=== PATIENT | male | born 1960 | race Caucasian/White ===

== ENCOUNTER → 2020-11-11 14:11 | Outpatient (CLI) | payer OTHER, SELFPAY ==
[2020-11-11 15:11] LABS: Basophils # 0.1 K/mm3 (0-0.2); Basophils % 0.7 % (0.1-2.0); Eosinophils # 0.5 K/mm3 (0.0-0.4); Eosinophils % 4.3 % (0.1-12.0); Hemoglobin 14.9 g/dL (14.1-18.0); Lymphocytes # 2.6 K/mm3 (0.7-4.5); Lymphocytes % 23.6 % (10-50); Mean Corpuscular Hemoglobin 30.1 pg (27.0-31.2); Mean Corpuscular Volume 88.7 fl (80-94); Mean Platelet Volume 8.7 fl (7.4-10.4); Monocytes # 0.7 K/mm3 (0.1-1.0); Monocytes % 6.2 % (1.7-9.3); Neutrophils % 65.2 % (37.0-80.0); Platelet Count 246 K/mm3 (142-424); Red Blood Count 4.96 M/mm3 (4.60-6.20); Red Cell Distribution Width 14.6 % (11.5-17.5); White Blood Count 10.8 K/mm3 (4.8-10.8)
[2020-11-11 15:16] LABS: Alanine Aminotransferase 27 U/L (12-78); Albumin Level 4.4 g/dl (3.5-5.0); Albumin/Globulin Ratio 1.6 (1.1-1.8); Alkaline Phosphatase 94 U/L (38-126); Anion Gap 9.9 mEq/L (5-15); Aspartate Amino Transferase 27 U/L (17-59); Bilirubin,Total 0.4 mg/dl (0.2-1.3); Blood Urea Nitrogen 17 mg/dl (9-20); Calcium 10.5 mg/dl (8.4-10.2); Carbon Dioxide 31 mmol/L (22.0-30.0); Chloride 105 mmol/L (98-107); Chol/HDL Ratio 6.6 (1-3.5); Cholesterol 232 mg/dl (140-200); Estimated Glomerular Filt Rate 69 ml/min (>60); GFR (African American) 83 ML/MIN (>60); Globulin 2.8 g/dL (1.3-3.2); Glucose 88 mg/dl (74-100); HDL Cholesterol 35 mg/dl (40-60); Potassium 4.9 mmoL/L (3.5-5.1); Sodium 141 mmol/L (136-145); Total Protein,Serum 7.2 g/dl (6.3-8.2); Triglycerides 220 mg/dl (30-150); VLDL Cholesterol 44 mg/dL (0-40)
[2020-11-11 15:27] LABS: Direct LDL Cholesterol 174.31 mg/dL (100-129)
== END ==
PROVIDERS: Visit Provider Family Medicine
DX: I10 Essential (primary) hypertension (principal); R60.0 Localized edema; E66.09 Other obesity due to excess calories; Z68.36 Body mass index [BMI] 36.0-36.9, adult; Z12.5 Encounter for screening for malignant neoplasm of prostate
CPT/HCPCS: 80053; 80061; 84443; 85025; G0103

== ENCOUNTER → 2021-01-07 13:48 | Outpatient (CLI) | payer OTHER, SELFPAY ==
[2021-01-07 14:13] LABS: Chloride 106 mmol/L (98-107)
[2021-01-07 14:14] LABS: Potassium 3.5 mmoL/L (3.5-5.1); Sodium 143 mmol/L (136-145)
[2021-01-07 14:16] LABS: Alanine Aminotransferase 27 U/L (12-78); Albumin Level 4.4 g/dl (3.5-5.0); Albumin/Globulin Ratio 1.6 (1.1-1.8); Alkaline Phosphatase 99 U/L (38-126); Anion Gap 11.5 mEq/L (5-15); Aspartate Amino Transferase 34 U/L (17-59); Bilirubin,Total 0.6 mg/dl (0.2-1.3); Blood Urea Nitrogen 18 mg/dl (9-20); Carbon Dioxide 29 mmol/L (22.0-30.0); Estimated Glomerular Filt Rate 62 ml/min (>60); GFR (African American) 75 ML/MIN (>60); Globulin 2.7 g/dL (1.3-3.2); Total Protein,Serum 7.1 g/dl (6.3-8.2)
[2021-01-07 14:17] LABS: Calcium 9.1 mg/dl (8.4-10.2); Chol/HDL Ratio 5.1 (1-3.5); Cholesterol 182 mg/dl (140-200); Glucose 101 mg/dl (74-100); HDL Cholesterol 36 mg/dl (40-60); Triglycerides 103 mg/dl (30-150); VLDL Cholesterol 21 mg/dL (0-40)
[2021-01-07 14:34] LABS: Direct LDL Cholesterol 129.76 mg/dL (100-129)
[2021-01-07 14:47] LABS: Thyroid Stimulating Hormone 1.97 uIU/mL (0.465-4.68)
[2021-01-07 14:52] LABS: Basophils # 0.1 K/mm3 (0-0.2); Basophils % 0.7 % (0.1-2.0); Eosinophils # 0.5 K/mm3 (0.0-0.4); Eosinophils % 4.5 % (0.1-12.0); Hematocrit 42.6 % (42.0-52.0); Hemoglobin 13.8 g/dL (14.1-18.0); Lymphocytes # 2.5 K/mm3 (0.7-4.5); Lymphocytes % 24.1 % (10-50); Mean Corpuscular HGB Conc 32.4 g/dL (31.8-35.4); Mean Corpuscular Hemoglobin 28.9 pg (27.0-31.2); Mean Platelet Volume 8.4 fl (7.4-10.4); Monocytes # 0.6 K/mm3 (0.1-1.0); Monocytes % 5.6 % (1.7-9.3); Neutrophils # 6.8 K/mm3 (1.8-7.8); Neutrophils % 65.1 % (37.0-80.0); Platelet Count 245 K/mm3 (142-424); Red Blood Count 4.79 M/mm3 (4.60-6.20); Red Cell Distribution Width 14.1 % (11.5-17.5); White Blood Count 10.5 K/mm3 (4.8-10.8)
== END ==
PROVIDERS: Visit Provider Family Medicine
DX: M25.50 Pain in unspecified joint (principal); I10 Essential (primary) hypertension; E55.9 Vitamin D deficiency, unspecified; Z79.899 Other long term (current) drug therapy
CPT/HCPCS: 80053; 80061; 82306; 84436; 84443; 85025

== ENCOUNTER → 2021-07-23 07:30 | Outpatient (CLI) | payer OTHER, SELFPAY ==
--- NOTE | 2021-07-23 07:34 | CA_ITS ---
APPROVED REPORT EXAM: Comprehensive 2D, Doppler, and color-flow Echocardiogram Technical Support Analyst: JELENA Beckett, RVS Ht: 6 ft 1 in Wt: 301lbs BSA: 2.56 BP: 139/83 mmHg Indications: Edema, >40 year HX smoking-quit 1 month ago. Obesity, Hyperlipidemia, Hypertension/HDD Echo Enhancing Agent Comments: Technically difficult study due chest circumference with lung impedence 2D Dimensions IVSd 1.15 cm LVEF (Visual) 50.10 % PWd 1.17 cm LA Volume 101.40 mL LVDd 5.67 cm LA Volume Index 39.60 mL/m2 (M/F) 16-34 LVDs 3.49 cm Left Atrium 4.33 cm LVOT 2.05 cm (M/F) 1.5-2.5 M-Mode Dimensions LA Diam 4.10 cm (1.9-4.0) Ao Diam 3.15 cm (2.0-3.7) EPSs 1.18 cm TAPSE 2.94 (<1.7) LV Diastology E Decel Time 298.00 (160-240 msec) E/A Ratio 1.73 MED E' 8.70 (< 7 cm/sec) MED A' 8.90 cm/s E'/MED E' Ratio 8.95 (>14) LAT E' 9.40 (<10 cm/sec) LAT A' 8.10 cm/s E/LAT E' Ratio 8.29 (>14) Aortic Valve LVOT Max 127.00 (70-110 cm/s) LVOT VTI 26.58 cm AoV Peak Elvis. 175.00 (50-130 cm/s) AI PHT 454.00 ms AO Peak GR. 12.30 mmHg AO Mean GR. 6.10 (<5 mmHg) AO VTI 36.93 (18-25 cm) ERASTO (VTI) 2.38 (2.5-4.5 cm2) Mitral Valve MV A Velocity 45.00 (40-130 cm/s) E/A Ratio 1.73 MV Decel. Time 298.00 (160-240 ms) Pulmonary Valve PV Peak Velocity 77.00 (50-150 cm/s) Tricuspid Valve TR P. Velocity 248.00 cm/s RAP Estimate 10.00 mmHg RVSP 34.60 mmHg Left Ventricle Left atrium is mildly enlarged, left ventricle is normal size, left ventricle wall thickness upper limit of normal, there is preserved left ventricular systolic function, visually estimated ejection fraction 55% with no regional wall motion abnormality, diastolic parameters are within normal range. Right Ventricle Right atrium and right ventricle are normal size and contractility. Aortic Valve Aortic valve is minimally thickened and calcified without aortic stenosis, there is mild aortic insufficiency. Mitral Valve Anterior mitral leaflet is minimally calcified, there is no mitral stenosis, there is mild mitral regurgitation. Tricuspid Valve Tricuspid valve grossly normal, there is mild tricuspid regurgitation, calculated right ventricular systolic pressure 34 mmHg. Pulmonic Valve Pulmonic valve is poorly visualized. Great Vessels Aortic root is normal size. Inferior vena cava is normal size with normal inspiratory collapse. Pericardium No significant pericardial effusion noted. Other Information Conclusion 1. Mildly enlarged left atrium, normal left ventricular size, visually estimated ejection fraction 55% with no regional wall motion abnormality. Diastolic parameters are within normal range. 2. Mild mitral and tricuspid regurgitation, calculated right ventricular systolic pressure 34 mmHg. 3. No significant pericardial effusion noted. 4. Inferior vena cava is normal size with normal inspiratory collapse. 5. Mild aortic insufficiency is also present. Electronically signed by : Saud Cedeno MD 07/24/2021 11:28:26
== END ==
PROVIDERS: PCP Family Medicine; Visit Provider Family Medicine
DX: R60.0 Localized edema (principal)
CPT/HCPCS: 93306

== ENCOUNTER → 2021-07-24 16:54 | Outpatient (CLI) | payer OTHER, SELFPAY ==
[2021-07-24 18:23] LABS: Chloride 103 mmol/L (98-107); Potassium 4.1 mmoL/L (3.5-5.1); Sodium 146 mmol/L (136-145)
[2021-07-24 18:25] LABS: Blood Urea Nitrogen 43 mg/dl (9-20); Estimated Glomerular Filt Rate 23 ml/min (>60); GFR (African American) 28 ML/MIN (>60)
[2021-07-24 18:26] LABS: Alanine Aminotransferase 19 U/L (12-78); Albumin Level 4.6 g/dl (3.5-5.0); Albumin/Globulin Ratio 1.5 (1.1-1.8); Alkaline Phosphatase 93 U/L (38-126); Anion Gap 19.1 mEq/L (5-15); Aspartate Amino Transferase 23 U/L (17-59); Bilirubin,Total 0.4 mg/dl (0.2-1.3); Calcium 9.9 mg/dl (8.4-10.2); Carbon Dioxide 28 mmol/L (22.0-30.0); Globulin 3.1 g/dL (1.3-3.2); Glucose 74 mg/dl (74-100); Total Protein,Serum 7.7 g/dl (6.3-8.2)
== END ==
PROVIDERS: Visit Provider Family Medicine
DX: R60.0 Localized edema (principal)
CPT/HCPCS: 80053

== ENCOUNTER → 2021-08-22 19:07 | Outpatient (CLI) | payer OTHER, SELFPAY ==
[2021-08-22 19:19] LABS: Basophils # 0.1 K/mm3 (0-0.2); Basophils % 0.8 % (0.1-2.0); Eosinophils # 0.5 K/mm3 (0.0-0.4); Eosinophils % 4.7 % (0.1-12.0); Hematocrit 33.4 % (42.0-52.0); Hemoglobin 10.9 g/dL (14.1-18.0); Mean Corpuscular HGB Conc 32.6 g/dL (31.8-35.4); Mean Corpuscular Hemoglobin 29.9 pg (27.0-31.2); Mean Corpuscular Volume 91.6 fl (80-94); Mean Platelet Volume 8.6 fl (7.4-10.4); Monocytes # 0.5 K/mm3 (0.1-1.0); Monocytes % 5.5 % (1.7-9.3); Neutrophils # 6.6 K/mm3 (1.8-7.8); Platelet Count 280 K/mm3 (142-424); Red Blood Count 3.65 M/mm3 (4.60-6.20); Red Cell Distribution Width 15.7 % (11.5-17.5); White Blood Count 9.7 K/mm3 (4.8-10.8)
[2021-08-22 19:21] LABS: Chloride 110 mmol/L (98-107); Sodium 145 mmol/L (136-145)
[2021-08-22 19:23] LABS: Blood Urea Nitrogen 17 mg/dl (9-20); Estimated Glomerular Filt Rate 44 ml/min (>60); GFR (African American) 54 ML/MIN (>60)
[2021-08-22 19:24] LABS: Alanine Aminotransferase 23 U/L (12-78); Albumin Level 4.2 g/dl (3.5-5.0); Albumin/Globulin Ratio 1.4 (1.1-1.8); Alkaline Phosphatase 107 U/L (38-126); Aspartate Amino Transferase 28 U/L (17-59); Bilirubin,Total 0.3 mg/dl (0.2-1.3); Calcium 9.4 mg/dl (8.4-10.2); Carbon Dioxide 25 mmol/L (22.0-30.0); Globulin 3.1 g/dL (1.3-3.2); Glucose 92 mg/dl (74-100); Total Protein,Serum 7.3 g/dl (6.3-8.2)
== END ==
PROVIDERS: Visit Provider Family Medicine
DX: N28.9 Disorder of kidney and ureter, unspecified (principal)
CPT/HCPCS: 80053; 85025

== ENCOUNTER → 2022-04-30 11:36 | Outpatient (CLI) | payer BC, MEDICAID, SELFPAY ==
--- NOTE | 2022-04-30 11:40 | XR_ITS ---
FINAL REPORT CLINICAL HISTORY: pain, suspect advanced erosion bilat FINDINGS: 2 views of the left hip and an AP pelvis were obtained. There is no acute fracture or dislocation. There is mild degenerative change of the left hip. There is a probable subchondral cyst in the superior left femoral head. There is moderate to severe degenerative change of the right hip. There are no soft tissue abnormalities. IMPRESSION: Mild left hip degenerative change with a probable subchondral cyst in the superior femoral head. Moderate to severe right hip degenerative change. Reviewed, Interpreted and Dictated by Jaylan Louise III, MD Transcribed by Shakir Cagle Authenticated and [facility]
--- NOTE | 2022-04-30 11:40 | XR_ITS ---
FINAL REPORT CLINICAL HISTORY: suspect advanced erosion, LOW BACK PAIN FINDINGS: AP and lateral views were obtained. There is no acute fracture. There is no malalignment. There are moderate degenerative changes with osteophytes. Postoperative changes are seen in the abdomen. IMPRESSION: Moderate degenerative change. Reviewed, Interpreted and Dictated by Jaylan Louise III, MD Transcribed by Shakir Cagle Authenticated and [facility]
--- NOTE | 2022-04-30 11:45 | XR_ITS ---
FINAL REPORT CLINICAL HISTORY: HIP PAIN FINDINGS: 2 views of the right hip were obtained. There is no acute fracture or dislocation. There are moderate to severe degenerative changes. There is a presumed subchondral cyst in the superior femoral head. There are no soft tissue abnormalities. IMPRESSION: Moderate to severe degenerative change with a presumed subchondral cyst in the superior femoral head. Reviewed, Interpreted and Dictated by Jaylan Louise III, MD Transcribed by Shakir Cagle Authenticated and [facility]
== END ==
PROVIDERS: PCP Family Medicine; Visit Provider Family Medicine
DX: M54.50 Low back pain, unspecified (principal); M25.552 Pain in left hip; M25.551 Pain in right hip
CPT/HCPCS: 72100; 73502

== ENCOUNTER → 2022-06-11 07:24 | Outpatient (CLI) | payer BC, MEDICAID, SELFPAY ==
--- NOTE | 2022-06-11 07:52 | MR_ITS ---
FINAL REPORT CLINICAL HISTORY: LBP bilateral radicular pain. HISTORY OF KIDNEY CANCER. UNABLE TO STAND OR WALK FOR LONG PERIODS. LOW BACK PAIN. BILATERAL LEG PAIN. FINDINGS: MRI LUMBAR SPINE W/O CONTRAST Multiplanar MR imaging of the lumbar spine was performed without contrast. There is motion on some of the images which decreases sensitivity. On the sagittal T2-weighted images, disc degeneration is seen throughout. Note is made of several hemangiomas. The vertebral alignment is normal. There is no evidence of fracture. The conus has an unremarkable appearance. T11-12: There is an annular disc bulge with facet arthropathy and vertebral osteophytes. There is mild right neural foraminal narrowing. T12-L1: There is an annular disc bulge with facet arthropathy and vertebral osteophytes. There is mild right and moderate left neural foraminal narrowing. L1-2: There is an annular disc bulge with facet arthropathy and vertebral osteophytes. There is mild bilateral neural foraminal narrowing. L2-3: There is an annular disc bulge with facet arthropathy and vertebral osteophytes. There is mild bilateral neural foraminal narrowing. L3-4: There is an annular disc bulge with facet arthropathy and vertebral osteophytes. There is a small left posterolateral disc protrusion. There is mild central canal stenosis with an AP diameter of the thecal sac of 8 mm. There is mild right and moderate left neural foraminal narrowing. L4-5: There is an annular disc bulge with facet arthropathy and vertebral osteophytes. There is a left posterolateral disc protrusion. There is mild central canal stenosis with an AP diameter of the thecal sac of 8 mm. There is moderate bilateral neural foraminal narrowing. L5-S1: There is an annular disc bulge with facet arthropathy and vertebral osteophytes. There is moderate bilateral neural foraminal narrowing. There is some spurring of the SI joints. The right kidney is not visualized and may be absent or ectopic. IMPRESSION: Multilevel disc degeneration and spondylosis with areas of neural foraminal narrowing as described. Posterior lateral disc protrusions with mild central canal stenosis at L3-4 and L4-5. Reviewed, Interpreted and Dictated by Jaylan Louise III, MD Transcribed by Ava Corona Authenticated and [facility]
--- NOTE | 2022-06-11 08:51 | NM_ITS ---
FINAL REPORT CLINICAL HISTORY: pt had kidney removed in Oct 2021 for cancer and then 2 months later he has had trouble walking 9 am 26.2 [facility]ci tc MDP injected into lt antey cancer FINDINGS: EXISTING RELEVANT IMAGING STUDIES: Hip x-rays April 30, 2022 TECHNIQUE: The patient was injected with 26.2 mCi of technetium 99-[id number]. 3 hour delayed images were obtained. FINDINGS: There is increased tracer activity in the shoulders, hips, knees, ankles, and feet felt to represent degenerative change. Prior hip radiographs demonstrate right greater than left degenerative change. No other abnormal tracer activity is identified to suggest occult fracture or metastatic disease. IMPRESSION: No findings to indicate metastatic bone disease. Reviewed, Interpreted and Dictated by Jaylan Louise III, MD Transcribed by Shakir Cagle Authenticated and [facility]
== END ==
PROVIDERS: PCP Family Medicine; Visit Provider Family Medicine
DX: M54.50 Low back pain, unspecified (principal); M54.10 Radiculopathy, site unspecified; Z85.528 Personal history of other malignant neoplasm of kidney; C64.9 Malignant neoplasm of unspecified kidney, except renal pelvis; M79.604 Pain in right leg; M79.605 Pain in left leg
CPT/HCPCS: 72148; 76376; 78306; A9503

== ENCOUNTER → 2022-12-22 14:23 | Outpatient (CLI) | payer OTHER, MEDICAID, SELFPAY ==
--- NOTE | 2022-12-22 14:27 | CT_ITS ---
FINAL REPORT CLINICAL HISTORY: f/u renal cancer FINDINGS: CT ABDOMEN WITHOUT CONTRAST PROCEDURE: Axial images were obtained from the lung base to the iliac crest by computed tomography. This study was performed with techniques to keep radiation doses as low as reasonably achievable, (ALARA). Individualized dose reduction techniques using automated exposure control or adjustment of mA and/or kV according to the patient's size were employed. ABDOMEN: The lung bases are clear. The unenhanced liver is homogeneous. The gallbladder is present. The spleen, adrenal glands, and pancreas are without acute abnormality. The right kidney is absent. No left renal stones are identified. There is a small hyperdense lesion in the left kidney measuring 11 mm favored to represent a hemorrhagic or proteinaceous cyst. There is a small exophytic hypodense lesion in the left kidney which is too small to characterize. There is no hydronephrosis. Abdominal GI tract is without acute abnormality. There is no lymphadenopathy or ascites. No acute osseous changes are seen. IMPRESSION: Right nephrectomy. Otherwise no acute abnormality. Probable small left hemorrhagic or proteinaceous cyst and small left renal lesion which is too small to characterize. Reviewed, Interpreted and Dictated by Batsheva Sheth MD Transcribed by Viky Hernandez Authenticated and [facility]
== END ==
PROVIDERS: PCP Family Medicine; Visit Provider Family Medicine
DX: C64.9 Malignant neoplasm of unspecified kidney, except renal pelvis (principal)
CPT/HCPCS: 74150

== ENCOUNTER 2023-12-13 19:42 | Outpatient (CLI) | payer SELFPAY ==
[2023-12-13 18:57] LABS: Anion Gap 12.6 mEq/L (5-15); Blood Urea Nitrogen 20 mg/dl (9-20); Calcium 9.7 mg/dl (8.4-10.2); Carbon Dioxide 26 mmol/L (22.0-30.0); Chloride 111 mmol/L (98-107); Chol/HDL Ratio 5.5 (1-3.5); Cholesterol 187 mg/dl (140-200); Estimated Glomerular Filt Rate 68 ml/min (>60); GFR (African American) 82 ML/MIN (>60); Glucose 95 mg/dl (74-100); HDL Cholesterol 34 mg/dl (40-60); Potassium 4.6 mmoL/L (3.5-5.1); Sodium 145 mmol/L (136-145); Triglycerides 121 mg/dl (30-150); VLDL Cholesterol 24 mg/dL (0-40)
[2023-12-13 19:09] LABS: Direct LDL Cholesterol 114.92 mg/dL (100-129)
== END 2023-12-13 23:59 ==
LOC: LAB.DROPOF 19:42
PROVIDERS: PCP Family Medicine; Visit Provider Family Medicine
DX: E78.5 Hyperlipidemia, unspecified (principal)
CPT/HCPCS: 80048; 80061

== ENCOUNTER 2025-02-01 09:11 | Outpatient (CLI) | payer MEDICARE, SELFPAY ==
[2025-02-01 18:14] LABS: Basophils # 0.1 K/mm3 (0-0.2); Basophils % 0.4 % (0.1-2.0); Eosinophils # 0.3 K/mm3 (0.0-0.4); Eosinophils % 2.6 % (0.1-12.0); Hematocrit 41.8 % (42.0-52.0); Hemoglobin 13.2 g/dL (14.1-18.0); Lymphocytes # 1.9 K/mm3 (0.7-4.5); Mean Corpuscular HGB Conc 31.6 g/dL (31.8-35.4); Mean Corpuscular Hemoglobin 28.9 pg (27.0-31.2); Mean Corpuscular Volume 91.5 fl (80-94); Mean Platelet Volume 9.5 fl (7.4-10.4); Monocytes # 1.1 K/mm3 (0.1-1.0); Monocytes % 9.6 % (1.7-9.3); Neutrophils # 8.3 K/mm3 (1.8-7.8); Nucleated Red Blood Cells # 0 10^3/uL; Nucleated Red Blood Cells % 0 %; Platelet Count 311 K/mm3 (142-424); Red Blood Count 4.57 M/mm3 (4.60-6.20); Red Cell Distribution Width-SD 43.5 fL; White Blood Count 11.6 K/mm3 (4.8-10.8)
[2025-02-01 19:21] LABS: Alanine Aminotransferase 67 U/L (12-78); Albumin Level 3.4 g/dl (3.5-5.0); Albumin/Globulin Ratio 1.1 (1.1-1.8); Alkaline Phosphatase 98 U/L (38-126); Anion Gap 15.5 mEq/L (5-15); Aspartate Amino Transferase 33 U/L (17-59); Bilirubin,Total 0.6 mg/dl (0.2-1.3); Blood Urea Nitrogen 20 mg/dl (9-20); Calcium 9.1 mg/dl (8.4-10.2); Carbon Dioxide 25 mmol/L (22.0-30.0); Chloride 105 mmol/L (98-107); Chol/HDL Ratio 4.5 (1-3.5); Cholesterol 144 mg/dl (140-200); Estimated Glomerular Filt Rate 76 ml/min (>60); GFR (African American) 92 ML/MIN (>60); Globulin 3.1 g/dL (1.3-3.2); Glucose 81 mg/dl (74-100); HDL Cholesterol 32 mg/dl (40-60); Potassium 4.5 mmoL/L (3.5-5.1); Sodium 141 mmol/L (136-145); Total Protein,Serum 6.5 g/dl (6.3-8.2); Triglycerides 81 mg/dl (30-150); VLDL Cholesterol 16 mg/dL (0-40)
[2025-02-01 19:32] LABS: Direct LDL Cholesterol 81.32 mg/dL (100-129)
[2025-02-01 19:51] LABS: Prostate Specific Ag Screen 3.7 ng/ml (0.0-4.0)
== END 2025-02-01 23:59 | disposition home or self-care (01) ==
LOC: LAB.DROPOF 02-02 09:59
PROVIDERS: PCP Family Medicine; Visit Provider Family Medicine
DX: I10 Essential (primary) hypertension (principal); Z12.5 Encounter for screening for malignant neoplasm of prostate
CPT/HCPCS: 80053; 80061; 85025; G0103